=== PATIENT | female | born 1975 | race Caucasian/White ===

== ENCOUNTER 2016-07-21 15:32 | Emergency (ER) | payer MEDICAID ==
[~2016-07-21] VITALS: Ht 160 cm; Wt 61.0 kg
[~2016-07-21 15:32] MED LIST: HYDR-3498 PO; RANI150T9 PO; ZOF8 PO
[2016-07-21 15:52] VITALS: Ht 160 cm; Wt 61.0 kg
[2016-07-21] MEDS ORDERED: ONDANSETRON (ODT) 4 MG TAB ODT STA (17:33)
[2016-07-21 17:45] LABS: URINE BLOOD (Dip) POC Trace-intact (NEGATIVE)
[2016-07-21] MEDS ORDERED: ACETAMINOPHEN 325 MG TAB PO ONE (18:00)
[2016-07-21] MEDS ORDERED: ACET500C5 PO (19:37)
[2016-07-21] MEDS ORDERED: ONDA8TAB14 PO (19:38)
--- NOTE | 2016-07-21 19:41 | ERD ---
ER Documentation Chief Complaint Date/Time DATE: 07/21/16 TIME: 19:39 Chief Complaint Pt with vomiting and LOPEZ X 1 day. HPI This 41-year-old female presents with vomiting 1 day. She has bitemporal headache as well associated with the sensation of a fever which resolved with Tylenol. She has positive subjective fevers but no measured temperature. She denies dysuria, abdominal pain, diarrhea, urinary complaints, neck stiffness, rashes. She denies any cough or sore throat. ROS All systems reviewed and are negative except as per history of present illness. Medications Home Meds Active Scripts Ondansetron (Ondansetron Odt) 8 Mg Tab.rapdis, 8 MG PO Q6H Y for NAUSEA AND/OR VOMITING, #8 TAB Prov:ROSMERY THACKER MD 07/21/16 Acetaminophen* (Tylophen*) 500 Mg Capsule, 1 CAP PO Q6H Y for PAIN AND OR ELEVATED TEMP, #15 CAP Prov:ROSMERY THACKER MD 07/21/16 Ondansetron Hcl* (Zofran* ODT) 8 mg -ODT Tab.disper, 8 MG PO Q6 Y for NAUSEA AND /OR VOMITING, #10 TAB Prov:GLEN OVIEDO PA-C 03/10/15 Ranitidine Hcl* (Zantac*) 150 Mg Tablet, 150 MG PO BID Y for PAIN, #30 TAB Prov:GLEN OVIEDO PA-C 03/10/15 Hydrocodone Bit-Acetaminophen* ([place]*) 5-325 Mg Tab, 1 TAB PO Q6 Y for PAIN, # 14 TAB Prov:GLEN OVIEDO PA-C 03/10/15 Allergies Allergies: Coded Allergies: No Known Allergy (Unverified , 03/10/15) PMhx/Soc Medical and Surgical Hx: pt denies Medical Hx, pt denies Surgical Hx History of Surgery: Yes (c/section x 1) Hx Alcohol Use: No Hx Substance Use: No Hx Tobacco Use: No Smoking Status: Never smoker Physical Exam Vitals Vital Signs Date Time Temp Pulse Resp B/P Pulse Ox O2 Delivery O2 Flow Rate FiO2 07/21/16 15:52 98.2 65 18 111/65 98 Physical Exam Const: [] Alert, [id number] per Head: Atraumatic. Reproducible headache in the occipital and bitemporal area. Eyes: Normal Conjunctiva ENT: Normal External Ears, Nose and Mouth. Neck: Full range of motion..~ No meningismus. Resp: Clear to auscultation bilaterally Cardio: Regular rate and rhythm, no murmurs Abd: Soft, non tender, non distended. Normal bowel sounds Skin: No petechiae or rashes Back: No midline or flank tenderness Ext: No cyanosis, or edema Neur: Awake and alert Psych: Normal Mood and Affect Results 24 hrs Laboratory Tests Test 07/21/16 17:46 Bedside Urine pH (LAB) 6.5 Bedside Urine Protein (LAB) Negative Bedside Urine Glucose (UA) Negative Bedside Urine Ketones (LAB) Negative Bedside Urine Blood Trace-intact Bedside Urine Nitrite (LAB) Negative Bedside Urine Leukocyte Esterase (L Negative Current Medications Medications (Trade) Dose Ordered Sig/Jennifer Route PRN Reason Start Time Stop Time Status Last Admin Dose Admin Ondansetron HCl (Zofran Odt) 8 mg ONCE STAT ODT 07/21/16 17:33 07/21/16 17:35 DC 07/21/16 18:36 Acetaminophen (Tylenol Tab) 650 mg ONCE ONCE PO 07/21/16 18:00 07/21/16 18:01 DC 07/21/16 18:35 Procedures/MDM Patient was given Tylenol and Zofran. Patient had no vomiting throughout the ED course. Urine is negative for leukocytes, nitrates, glucose. Was positive for trace blood and hCG is negative. Patient is vomiting 1 the day of uncertain etiology. She may have a viral gastroenteritis. There is no current signs or symptoms to suggest UTI, acute abdomen, obstruction, meningitis, pneumonia,, additional emergent causes of patient presenting complaints. She will treated with Tylenol Zofran and further observation at home. The patient was stable with no new complaints during the ER course. Clinically, there is no current evidence to suggest meningitis, sepsis, acute abdomen, pneumonia, acute coronary syndrome, pulmonary embolism, or any other emergent condition appearing to require further evaluation or hospitalization. The patient should certainly return for any new or worsening symptoms per the aftercare instructions. They should otherwise follow-up with her primary care doctor for reevaluation this week. Departure Diagnosis: Primary Impression: Headache Headache type: unspecified Headache chronicity pattern: unspecified pattern Intractability: not intractable Qualified Code: R51 - Nonintractable headache, unspecified chronicity pattern, unspecified headache type Additional Impression: Vomiting Vomiting type: unspecified Vomiting Intractability: unspecified Nausea presence: unspecified Qualified Code: R11.10 - Vomiting, intractability of vomiting not specified, presence of nausea not specified, unspecified vomiting type Condition: Stable Patient Instructions: Vomiting (6Y-Adult) Additional Instructions: ORINA NORMAL. probablamente un virus que dura 2-4 pisano. cheque otro nirali el proximo darnell para mas simptomas- vomito, dolor, yuliana, problemas con respirando , o con galvan doctor primario. ROSMERY THACKER MD July 21, 2016 19:40
[2016-07-21 19:46] VITALS: BP 117/64; PULSE 73; RESP 17; TEMP 98.6
== END 2016-07-21 19:47 | disposition home or self-care (01) ==
LOC: FTE 15:32
DX: R51 Headache (principal)
CPT/HCPCS: 81003; Z7502; Z7610; 99283